=== PATIENT | male | born 1965 | race Two or more races ===

== ENCOUNTER 2019-07-17 18:52 | Emergency (ER) | payer OTHER ==
[~2019-07-17] VITALS: Ht 193 cm; Wt 106.8 kg
[2019-07-17] MEDS: ACETAMINOPHEN 500 MG TABLET PO ONE ×2 (20:01→20:54)
[2019-07-17 20:57] VITALS: BP 155/80
[2019-07-17 21:11] LABS: GLUCOSE,POINT OF CARE 295 MG/DL (70-110)
== END 2019-07-17 21:03 | disposition home or self-care (01) ==
LOC: EMS 18:53
DX: S20.212A Contusion of left front wall of thorax, initial encounter (principal); S00.83XA Contusion of other part of head, initial encounter; M25.512 Pain in left shoulder; E11.9 Type 2 diabetes mellitus without complications; I10 Essential (primary) hypertension; Z98.890 Other specified postprocedural states; Y04.0XXA Assault by unarmed brawl or fight, initial encounter; Y93.89 Activity, other specified; Y92.89 Other specified places as the place of occurrence of the external cause; Y99.8 Other external cause status
CPT/HCPCS: 70450